=== PATIENT | female | born 1985 | race Caucasian/White ===

== ENCOUNTER → 2017-02-16 | Outpatient (CLI) | payer OTHER ==
[~2017-02-16] MED LIST: FERR325T3 PO; MOTR200T44 PO; PERC5TAB6 PO; PERCOCET PO
--- NOTE | 2017-02-16 14:10 | REP ---
Clinical: Follow-up thyroid nodules. Comparison: 05/13/2016. Technique: Real time barney scale and color evaluation using linear high frequency transducer. Findings: The right thyroid lobe measures 5.7 x 1.7 x 1.9 cm and is normal in contour and parenchymal echogenicity. A solid 3 mm nodule is identified in the mid pole while the previously drained complex cyst is identified in the lower pole previously measuring 14 x 10 x 13 mm and currently measuring 10 x 6 x 9 mm. The left thyroid lobe measures 5.4 x 1.8 x 1.5 cm and includes 3 mm mid pole nodule and two 2 mm lower pole cysts. Isthmus measures 3.2 mm in width. Impression: 1. Previously noted drained complex cyst in the right lobe is again identified and slightly decreased in size from prior examination. 2. Small scattered nodules and cysts measuring between two and 3 mm are likely insignificant and nonspecific. Signed by Arthur Rodriguez MD 02/16/2017 02:01 P
== END ==
LOC: M RAD 12:52
PROVIDERS: ATTEND Otolaryngology
DX: E04.1 Nontoxic single thyroid nodule (principal)

== ENCOUNTER → 2017-04-27 | Outpatient (CLI) | payer OTHER ==
[~2017-04-27] MED LIST changes: +PERC5TAB12 PO; -PERC5TAB6 PO
[2017-04-27 11:13] LABS: BASO % 0.6 % (0.0-1.0); EOS # 0.1 K/mm3 (0.0-0.50); EOS % 2.1 % (0.0-3.0); LARGE UNSTAINED CELL # 0.1 K/mm3 (0.0-0.4); LYMPH # 2.1 K/mm3 (1.5-4.5); LYMPH % 39.1 % (24.0-44.0); MEAN CORPUSCULAR HEMOGLOBIN 32.6 pg (27.0-33.0); MEAN CORPUSCULAR VOLUME 93.1 fl (80.0-96.0); MONO # 0.3 K/mm3 (0.0-0.8); NEUTROPHILS # 2.5 K/mm3 (1.8-7.7); NEUTROPHILS % 50.2 % (36.0-66.0); PLATELET COUNT, AUTOMATED 218 k/mm3 (150-450)
[2017-04-27 12:08] LABS: IMMUNOGLOBULIN M 86.4 MG/DL (40-230)
[2017-05-02 00:07] LABS: ANTI TETANUS ANTIBODY 1.63 IU/mL (<0.10)
[2017-05-09 00:07] LABS: PNEUPRE1 12.9 ug/mL (>1.3); PNEUPRE2 23.8 ug/mL (>1.3); PNEUPRE3 8.7 ug/mL (>1.3); PNEUPRE4 0.7 ug/mL (>1.3); PNEUPRE6 3.4 ug/mL (>1.3); PNEUPRE7 1.8 ug/mL (>1.3)
== END ==
LOC: M LAB 10:39
PROVIDERS: ATTEND Allergy & Immunology
DX: R53.81 Other malaise (principal)

== ENCOUNTER → 2018-12-01 | Outpatient (CLI) | payer OTHER | LOC: M OUTALCOH 07:49 | PROVIDERS: ATTEND Psychiatry & Neurology Psychiatry | DX: Z03.89 Encounter for observation for other suspected diseases and conditions ruled out (principal) ==

== ENCOUNTER 2018-12-08 09:28 | Outpatient (RCR) | payer OTHER | END 2018-12-26 | LOC: M OUTALCOH 09:28 | PROVIDERS: ATTEND Psychiatry & Neurology Psychiatry | DX: Z03.89 Encounter for observation for other suspected diseases and conditions ruled out (principal) ==

== ENCOUNTER 2019-05-29 12:52 | Emergency (ER) | payer OTHER ==
[~2019-05-29] VITALS: Ht 162.6 cm; Wt 90.5 kg
[2019-05-29] MEDS ORDERED: FAMO20TA PO (13:02)
[2019-05-29 13:37] LABS: BASO % 0.2 % (0.0-1.0); EOS % 0.1 % (0.0-3.0); HEMATOCRIT 45.6 % (36.0-47.0); LYMPH # 1.5 10^3/uL (1.5-5.0); LYMPH % 18.1 % (24.0-44.0); MEAN CORPUSCULAR HEMOGLOBIN 31.6 pg (27.0-33.0); MEAN CORPUSCULAR HGB CONC 35.1 g/dl (32.0-36.5); MEAN CORPUSCULAR VOLUME 89.9 fl (80.0-96.0); MONO # 0.6 10^3/uL (0.0-0.8); MONO % 6.7 % (0.0-5.0); NEUTROPHILS # 6.4 10^3/uL (1.5-8.5); NEUTROPHILS % 74.7 % (36.0-66.0); PLATELET COUNT, AUTOMATED 240 10^3/uL (150-450); RED BLOOD COUNT 5.07 10^6/uL (4.00-5.40); WHITE BLOOD COUNT 8.5 10^3/uL (4.0-10.0)
[2019-05-29] MEDS ORDERED: ONDANSETRON 4MG/2ML VIAL (J2405) IV ONE (14:00)
[2019-05-29] MEDS ORDERED: NS 1,000 ML IV ONE (14:00)
[2019-05-29 14:12] LABS: ALBUMIN 4.1 GM/DL (3.2-5.2); ALT/SGPT 26 U/L (12-78); BILIRUBIN,DIRECT 0.1 MG/DL (0.0-0.2); BILIRUBIN,TOTAL 0.4 MG/DL (0.2-1.0); BLOOD UREA NITROGEN 9 MG/DL (7-18); CALCIUM LEVEL 9.5 MG/DL (8.5-10.1); CARBON DIOXIDE LEVEL 31 MEQ/L (21-32); CHLORIDE LEVEL 100 MEQ/L (98-107); CK-MB VALUE MASS < 1.0 NG/ML (<3.6); CPK CREATINE PHOSPHOKINASE 65 U/L (26-192); CREATININE FOR GFR 0.99 MG/DL (0.55-1.30); GLOMERULAR FILTRATION RATE > 60.0 (>60); GLUCOSE, FASTING 122 MG/DL (70-100); LIPASE 121 U/L (73-393); MB/CK RELATIVE INDEX 1.54 (< OR =4); POTASSIUM SERUM 3.1 MEQ/L (3.5-5.1); SODIUM LEVEL 139 MEQ/L (136-145); TOTAL PROTEIN 7.8 GM/DL (6.4-8.2); TROPONIN I < 0.02 NG/ML (< 0.10)
--- NOTE | 2019-05-29 14:26 | REP ---
Clinical: abdominal pain. Comparison: neg. Technique: PA and lateral. Findings: The mediastinum and cardiac silhouette are normal. The lung hector are clear and without acute consolidation, effusion, or pneumothorax. The skeletal structures are intact and normal. Impression: 1. No acute cardiopulmonary process. Electronically Signed by Arthur Rodriguez MD 05/29/2019 02:17 P
--- NOTE | 2019-05-29 14:28 | REP ---
Clinical: Epigastric and abdominal pain. Technique: Supine views of the abdomen and pelvis. Findings: Supine views of the abdomen and pelvis demonstrate nonspecific bowel gas pattern without obstruction or perforation. No organomegaly. No abnormal calcifications. Phleboliths in pelvis. Skeletal structures normal for age. Impression: Nonspecific bowel gas pattern. Electronically Signed by Arthur Rodriguez MD 05/29/2019 02:19 P
--- NOTE | 2019-05-29 14:36 | ECGEPIP ---
[facility] - ED Test Date: 2019-05-29 Pat Name: JEREMIAS BREWER Department: Room: - Gender: Female Purchasing Clerk: ct : 1985 Requested By: RIVAS Palomo PA-C Order Number: [id number] Reading MD: Teri Hurst Measurements Intervals [place] Rate: 51 P: [place]: 0 QRS: 22 QRSD: 102 T: 31 QT: 468 QTc: 433 Interpretive Statements SINUS BRADYCARDIA SHORT [place] INTERVAL NONSPECIFIC ST T WAVE CHANGES ABNORMAL RHYTHM ECG Electronically Signed on 05-29-2019 14:36:10 EDT by Teri Hurst
[2019-05-29] MEDS ORDERED: GI COCKTAIL 50ML BTL(HYOSCYAMINE/MAALOX/LIDOCAINE VISCOUS)(1:3:1) PO ONE (15:00)
[2019-05-29] MEDS ORDERED: POTASSIUM CHLORIDE 10 MEQ SR TABLET PO ONE (16:00)
[2019-05-29] MEDS ORDERED: FAMOTIDINE 20 MG TAB PO ONE (16:00)
[2019-05-29] MEDS ORDERED: diphenhydrAMINE INJ 50MG/ML VIAL (J1200) IV STA (17:40)
[2019-05-29] MEDS ORDERED: methylPREDNISolone INJ 125 MG/2 ML VIAL (J2930) IV ONE (17:45)
[2019-05-29] MEDS ORDERED: KETOROLAC 30 MG/ML VIAL (J1885) IV ONE (17:45)
[2019-05-29] MEDS ORDERED: ISOVUE-370 76% 100ML VIAL (Q9967) As Ordered ONE (18:36)
--- NOTE | 2019-05-29 19:40 | REPVR ---
EXAM: CT Abdomen and Pelvis With Contrast EXAM DATE/TIME: 05/29/2019 6:45 PM CLINICAL HISTORY: 33 years old, female; Abdominal pain; Epigastric; Additional info: Epigastric pain TECHNIQUE: Imaging protocol: Computed tomography of the abdomen and pelvis with intravenous contrast. Radiation optimization: All CT scans at this facility use at least one of these dose optimization techniques: automated exposure control; mA and/or kV adjustment per patient size (includes targeted exams where dose is matched to clinical indication); or iterative reconstruction. Contrast material: ISOVUE 370; Contrast volume: 100 ml; Contrast route: IV; COMPARISON: CR Abdomen,Flat Plate KUB 05/29/2019 2:08 PM FINDINGS: Lungs: No suspicious mass or airspace process in the visualized lung bases. Liver: Liver appears normal with no focal abnormality. Gallbladder and bile ducts: Gallbladder is present and shows no evidence of gallstone. Pancreas: Pancreas appears normal. No focal mass or peripancreatic inflammation. Spleen: Spleen appears homogeneous without focal mass. Adrenals: Adrenal glands are normal in appearance. Kidneys and ureters: Kidneys appear normal, with no stone, solid mass or hydronephrosis. Stomach and bowel: No evidence of small bowel obstruction. Diffuse gastric wall thickening is present in the body and antrum. No perforated ulcer. Probable prior appendectomy, with cecal tip suture line. Minimal RLQ inflammation. Intraperitoneal space: No pneumoperitoneum. No abnormal pelvic mass. Vasculature: Main portal and splenic veins enhance normally. No aortic aneurysm. Lymph nodes: No enlarged lymph nodes. Bladder: Bladder appears normal. Reproductive: Unremarkable as visualized. Bones/joints: Bony structures show no acute fracture or destructive process. Soft tissues: See Stomach And Bowel Finding. IMPRESSION: Diffuse gastric body and antral marrow edema suggesting gastritis or peptic ulcer disease without obstruction or perforation. No convincing evidence of a focal mass. Followup is recommended and upper endoscopy could be performed if clinically warranted Electronically signed by: Sachin Goodman On 05/29/2019 19:40:21 PM
--- NOTE | 2019-05-29 19:42 | REPVR ---
EXAM: CT Chest With Contrast EXAM DATE/TIME: 05/29/2019 6:45 PM CLINICAL HISTORY: 33 years old, female; Chest pain; Type not specified; Additional info: Epigastric pain TECHNIQUE: Imaging protocol: Computed tomography of the chest with intravenous contrast. Radiation optimization: All CT scans at this facility use at least one of these dose optimization techniques: automated exposure control; mA and/or kV adjustment per patient size (includes targeted exams where dose is matched to clinical indication); or iterative reconstruction. Contrast material: ISOVUE 370; Contrast volume: 100 ml; Contrast route: IV; COMPARISON: CR Chest, 2 view PA, Lat 05/29/2019 2:08 PM FINDINGS: Lungs: Pulmonary vascular/interstitial pattern does not suggest active pulmonary edema. No suspicious lung mass or air space process. No central endobronchial lesion. Pleural space: No pleural effusion or pneumothorax. Heart: No cardiac enlargement or pericardial effusion. Mediastinum: Residual thymic tissue is present in the anterior mediastinum. Aorta: No thoracic aortic aneurysm or dissection. Lymph nodes: No enlarged mediastinal lymph nodes. Bones/joints: Bony structures show no acute fracture or destructive process. Soft tissues: No asymmetric abnormality of the extrathoracic soft tissues. IMPRESSION: Unremarkable contrast enhanced CT of the chest. Electronically signed by: Sachin Goodman On 05/29/2019 19:42:07 PM
[2019-05-29] MEDS ORDERED: CARA1TAB6 PO (20:07)
[2019-05-29] MEDS ORDERED: PROT1TAB2 PO (20:07)
[2019-05-29 20:24] VITALS: BP 133/86
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
== END 2019-05-29 20:26 | disposition home or self-care (01) ==
LOC: M ED 12:52
DX: K29.70 Gastritis, unspecified, without bleeding (principal); K27.9 Peptic ulcer, site unspecified, unspecified as acute or chronic, without hemorrhage or perforation; R00.1 Bradycardia, unspecified; R94.31 Abnormal electrocardiogram [ECG] [EKG]; Z87.442 Personal history of urinary calculi; Z87.891 Personal history of nicotine dependence; Z79.899 Other long term (current) drug therapy; Z91.041 Radiographic dye allergy status
CPT/HCPCS: 71046; 71260; 74018; 74177; 80048; 80076; 81001; 82550; 82553; 83690; 84484; 84702; 85025; 93005; 96361; 96374; 96375; 99284; J1200; J1885; J2405; J2930; Q9967

== ENCOUNTER 2021-07-09 06:43 | Emergency (ER) | payer OTHER ==
[~2021-07-09] VITALS: Ht 162.6 cm; Wt 93.6 kg
[~2021-07-09 06:43] MED LIST changes: +CARA1TAB6 PO; +FAMO20TA PO; +PROT1TAB2 PO
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
[2021-07-09 11:10] VITALS: BP 130/95
== END 2021-07-09 11:24 | disposition home or self-care (01) ==
LOC: M ED 06:43
DX: S09.90XA Unspecified injury of head, initial encounter (principal); S73.102A Unspecified sprain of left hip, initial encounter; S43.402A Unspecified sprain of left shoulder joint, initial encounter; S13.4XXA Sprain of ligaments of cervical spine, initial encounter; V40.5XXA Car driver injured in collision with pedestrian or animal in traffic accident, initial encounter; Y92.410 Unspecified street and highway as the place of occurrence of the external cause; Y93.89 Activity, other specified; Y99.9 Unspecified external cause status; Z91.041 Radiographic dye allergy status

== ENCOUNTER → 2021-12-02 | Outpatient (CLI) | payer OTHER | LOC: M RAD 11:02 | PROVIDERS: ATTEND Internal Medicine | DX: E04.2 Nontoxic multinodular goiter (principal) ==

== ENCOUNTER → 2023-02-13 | Outpatient (CLI) | payer OTHER | LOC: M EKG 06:07 | PROVIDERS: ATTEND Physician Assistant Medical | DX: R00.2 Palpitations (principal) ==